=== PATIENT | male | born 2005 | race Caucasian/White ===

== ENCOUNTER 2024-05-01 17:29 | Emergency (ER) | payer BC, SELFPAY ==
[2024-05-01 17:42] VITALS: BP 135/73; PULSE 80; RESP 18; TEMP 37.6; O2SAT 100
--- NOTE | 2024-05-01 18:03 | ED_ITS ---
HPI - Allergic Reaction General Chief complaint: Allergic Reaction Stated complaint: rash History of Present Illness HPI narrative: patient is a 18-year-old male, without significant past medical history, presents to [facility] with a pruritic rash to the dorsal aspect of his hands, forearms and upper neck, onset of symptoms 2 days ago. He has no known allergic contacts, he has no other skin surfaces with similar eruptions, he notes that his torso, palmar surfaces, face and lower extremities are spared. He has taken diphenhydramine once for symptom relief without much improvement. He denies any additional modifying factors. He has no history of similar rash eruption the past. Related Data Allergies Allergy/AdvReac Type Severity Reaction Status Date / Time No Known Allergies Allergy Unverified 10/01/17 08:30 Review of Systems Integumentary/Breasts: Skin/Breast: Reports as per HPI Exam Const: General: cooperative, healthy appearing, comfortable, no acute distress, well developed, alert, awake and Physically active Nutritional Appearance: thin Limitations: no limitations HENMT: Head: normal to inspection Ears: hearing grossly normal bilaterally, external ears normal and TM's normal bilaterally Face/Nose/Sinus: Normal external nose present and Normal nares present Face and sinus: normal facial exam, sinuses nontender and face symmetric Mouth: Yes Normal oral and palatal mucosa present, Yes lip normal, Yes tongue normal, Yes Normal salivary glands and ducts present, Yes oropharynx normal and Yes moist mucous membranes Teeth and gingiva: dentition normal Throat: posterior oropharynx normal, tonsils normal and uvula midline Eyes: General: appearance normal, both eyes and all related structures Visual Dey: normal visual dey by confrontation Eyelids: eyelids normal Conjunctivae: conjunctivae normal Sclera: sclerae normal EOM: EOMs intact bilaterally and EOM abnormal Neck: Neck: normal visual inspection, full ROM, no lymphadenopathy, no meningeal signs, trachea midline and supple Thyroid: thyroid normal Lymphatic: no lymphadenopathy noted Other: patient has a fine papular rash over the anterior surface of this neck, extending down to the clavicular margin. There is no rash below the level of the clavicles bilaterally. His face is spared. A similar rashes noted over the dorsal aspects of the hands bilaterally extending up to the mid forearm. There are no pustules, no vesicles no lymphangitis or tenderness to palpation. Palmar surfaces are spared. Torso spared Resp: Effort & Inspection: normal respiratory effort Auscultation: clear to auscultation bilaterally Cardio: Palpation: normal PMI Rate: regular rate Heart sounds: S1 normal heart sound present and S2 normal heart sound present Back/Spine/Pelvis: Back: no CVA tenderness Skin: General skin exam: normal color Rashes: rashes noted ( seen neck examination) Neuro: General: oriented to person, oriented to place, oriented to time and patient oriented x3 Cranial nerves: Yes CN's II-XII intact bilaterally Cognition (Neuro): normal cognition Speech: normal speech Gait exam (Neuro): Normal gait present Motor exam (neuro): 5/5 motor strength present throughout and Pronator motor function not present Extrem: General: normal to inspection Course Course Emergency Course: patient is advised his symptoms and examination are consistent with a contact dermatitis, plan to treat with oral steroids, short course with continued diphenhydramine every 6 hours. Follow-up with PCP if rash is not improving. Examine his environment to need help identify possible allergens. Especially given his pattern of rash to exposed skin surfaces only. Patient verbalized understanding he is agreeable with discharge plan care Level of Care: Express Care Visit ([id number]) Vital Signs Vital signs: Vital Signs Temperature 37.6 C 05/01/24 17:42 Pulse Rate 80 05/01/24 17:42 Respiratory Rate 18 05/01/24 17:42 Blood Pressure 135/73 05/01/24 17:42 Pulse Oximetry 100 05/01/24 17:42 Oxygen Delivery Room Air 05/01/24 17:42 Temperature 37.6 C 05/01/24 17:42 Pulse Rate 80 05/01/24 17:42 Respiratory Rate 18 05/01/24 17:42 Blood Pressure 135/73 05/01/24 17:42 Pulse Oximetry 100 05/01/24 17:42 Oxygen Delivery Room Air 05/01/24 17:42 MDM - Allergic Reaction MDM Narrative Medical decision making narrative: prednisone, continue Benadryl, calamine lotion topically or hydrocortisone cream as directed [id number] Differential Diagnosis Differential diagnosis: Likely allergic reaction, contact dermatitis, viral enanthem and urticaria Discharge Plan Discharge Clinical Impression: Contact dermatitis Qualifiers: Contact dermatitis type: allergic Contact dermatitis trigger: unspecified trigger Qualified Code(s): L23.9 - Allergic contact dermatitis, unspecified cause Patient Disposition: Home, Self-Care Condition: Stable Instructions: Antibiotic Form, Contact Dermatitis (ED) Additional Instructions: START AND COMPLETE ORAL STEROIDS PRESCRIBED, CONTINUE [id number] BENADRYL EVERY 6 HOURS UNTIL THE RASH IS RESOLVED. YOU MAY APPLY TOPICAL HYDROCORTISONE CREAM AND OR CALAMINE LOTION FOR ADDED SYMPTOM RELIEF. SEE YOUR DOCTOR IN 3 DAYS IF SYMPTOMS NOT IMPROVING. Patient Language: Yi Prescriptions: New prednisone 20 mg tablet 40 mg PO DAILY 5 Days Qty: 10 0RF Follow-up/Referrals: PHYSICIAN,[employer] EDUCATION TEACHER [Primary Care Provider] - Time of Disposition: 18:10
--- OUTSIDE RECORDS SUMMARY | 2024-05-08 21:27 | XMS_ITS | Encounter Summary ---
Author Organization [facility] Address [facility]. [place], [place] [id number] [place] [id number] Care Team Providers Care Loftsman/Woman Name Role Phone Unavailable Primary Care Provider Unavailabl e Encounter Details Date Type Department Care Team (Late st Contact Info) Description [address] 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
--- OUTSIDE RECORDS SUMMARY | 2024-05-08 21:27 | XMS_ITS | Encounter Summary ---
Author Organization [facility] Address [facility] 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
--- OUTSIDE RECORDS SUMMARY | 2024-05-08 21:27 | XMS_ITS | Encounter Summary ---
Author Organization [facility] Address [facility]. [place], [place] [address] [place] [id number] Care Team Providers Care Vascular Surgery Physician Name Role Phone Unavailable Primary Care Provider Unavailabl e Encounter Details Date Type Department Care Team (Late st Contact Info) Description 02/14/2010 Abstract [facility] 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
--- OUTSIDE RECORDS SUMMARY | 2024-05-08 21:27 | XMS_ITS | Clinical Summary ---
Author Organization [facility] Address [facility] 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 Gender Identity Not on file Sexual Orientation Not on file Plan of Treatment Health Maintenance Due Date Last Done Comments Annual Physical 2007 HPV Vaccines (1 - Male 3-dos e series) 2019 Hepatitis C 2022 DTaP, Tdap and Td Vaccines ( 1 - Tdap) 2023 Hepatitis B Vaccines (1 of 3 - 19+ 3-dose series) 2023 COVID-19 Vaccine ( - 2023-2 5 season) 2024 Influenza Adult (#1) 2024 Meningococcal Vaccine Aged Out No mariam carmen eligible based on patient's age to complete this topic Pneumococcal Vaccine: Pediat rics (0 to 5 Years) and At-Risk Patients (6 to 64 Years) Aged Out No longer eligible b ased on patient's age to complete this topic RSV Immunizations Under 20 Months Aged Out No longer eligible based on patient's age to complete this topic
--- OUTSIDE RECORDS SUMMARY | 2024-05-08 21:27 | XMS_ITS | Encounter Summary ---
Author Organization [facility] Address [facility] [facility]. 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
== END 2024-05-01 18:30 | disposition home or self-care (01) ==
PROVIDERS: Emergency Provider Nurse Practitioner Family
DX: L23.9 Allergic contact dermatitis, unspecified cause (principal)
CPT/HCPCS: 99203; G0463